=== PATIENT | male | born 1950 | race Caucasian/White ===

== ENCOUNTER 2016-05-22 09:43 | Emergency (ER) | payer MEDICAID, OTHER ==
[~2016-05-22] VITALS: Ht 182.9 cm; Wt 71.8 kg
[~2016-05-22 09:43] MED LIST: CEPH500 PO; RISP1 PO
[2016-05-22 09:44] VITALS: BP 123/84
[2016-05-22] MEDS ORDERED: OXYC10TA89 PO (09:53)
[2016-05-22] MEDS ORDERED: HYDROCODONE/ACETAMINOPHEN 5-325 MG TABLET PO ONE (10:30)
== END 2016-05-22 11:01 | disposition home or self-care (01) ==
LOC: EMS 09:45
DX: M54.5 Low back pain (principal); F20.9 Schizophrenia, unspecified; Z88.6 Allergy status to analgesic agent; W01.0XXA Fall on same level from slipping, tripping and stumbling without subsequent striking against object, initial encounter; Y93.89 Activity, other specified; Y92.89 Other specified places as the place of occurrence of the external cause; Y99.8 Other external cause status
CPT/HCPCS: 99283

== ENCOUNTER 2016-05-24 08:13 | Emergency (ER) | payer OTHER ==
[~2016-05-24] VITALS: Ht 182.9 cm; Wt 71.0 kg
[~2016-05-24 08:13] MED LIST changes: +OXYC10TA89 PO
[2016-05-24] MEDS ORDERED: BACL20TA PO (08:28)
[2016-05-24] MEDS ORDERED: TRAM50TA4 PO (08:28)
[2016-05-24] MEDS ORDERED: GABA-318 PO (08:28)
[2016-05-24 08:38] VITALS: BP 112/72
[2016-05-24] MEDS ORDERED: OxyCODONE HCL/ACETAMINOPHEN 5-325 MG TABLET PO ONE (08:45)
[2016-05-24] MEDS ORDERED: METHOCARBAMOL 500 MG TABLET PO ONE (09:00)
== END 2016-05-24 09:53 | disposition home or self-care (01) ==
LOC: EMS 08:15
DX: M54.5 Low back pain (principal); G89.29 Other chronic pain; I10 Essential (primary) hypertension; Z88.6 Allergy status to analgesic agent
CPT/HCPCS: 99283

== ENCOUNTER 2016-05-25 07:31 | Emergency (ER) | payer OTHER ==
[~2016-05-25] VITALS: Ht 182.9 cm; Wt 70.5 kg
[~2016-05-25 07:31] MED LIST changes: +BACL20TA PO; -CEPH500 PO; +GABA-318 PO; +TRAM50TA4 PO
[2016-05-25 07:36] VITALS: BP 110/81
[2016-05-25] MEDS ORDERED: OxyCODONE HCL/ACETAMINOPHEN 5-325 MG TABLET PO ONE (08:30)
== END 2016-05-25 08:35 | disposition home or self-care (01) ==
LOC: EMS 07:32
DX: G89.29 Other chronic pain (principal); M54.5 Low back pain; I10 Essential (primary) hypertension; Z88.6 Allergy status to analgesic agent
CPT/HCPCS: 99282

== ENCOUNTER 2016-05-27 06:45 | Emergency (ER) | payer OTHER ==
[~2016-05-27] VITALS: Ht 182.9 cm; Wt 72.5 kg
[~2016-05-27 06:45] MED LIST changes: -RISP1 PO
[2016-05-27 07:01] VITALS: BP 139/69
[2016-05-27] MEDS ORDERED: OxyCODONE HCL/ACETAMINOPHEN 5-325 MG TABLET PO ONE (09:00)
[2016-05-27] MEDS ORDERED: METHOCARBAMOL 500 MG TABLET PO ONE (09:00)
== END 2016-05-27 09:11 | disposition home or self-care (01) ==
LOC: EMS 06:47
DX: G89.29 Other chronic pain (principal); M54.9 Dorsalgia, unspecified; I10 Essential (primary) hypertension; Z88.6 Allergy status to analgesic agent
CPT/HCPCS: 99283

== ENCOUNTER 2016-05-27 18:23 | Emergency (ER) | payer OTHER ==
[~2016-05-27] VITALS: Ht 193 cm; Wt 70.5 kg
[2016-05-27] MEDS ORDERED: OxyCODONE HCL/ACETAMINOPHEN 5-325 MG TABLET PO ONE (22:30)
[2016-05-27 22:48] VITALS: BP 115/73
== END 2016-05-27 22:51 | disposition home or self-care (01) ==
LOC: EMS 18:24
DX: M54.5 Low back pain (principal); I10 Essential (primary) hypertension; Z88.6 Allergy status to analgesic agent
CPT/HCPCS: 99282

== ENCOUNTER 2016-05-29 16:03 | Emergency (ER) | payer OTHER ==
[~2016-05-29] VITALS: Ht 185.4 cm; Wt 72.7 kg
[2016-05-29 17:06] VITALS: BP 111/71
== END 2016-05-29 17:11 | disposition home or self-care (01) ==
LOC: EMS 16:05
DX: G89.29 Other chronic pain (principal); M54.5 Low back pain; I10 Essential (primary) hypertension; Z88.6 Allergy status to analgesic agent
CPT/HCPCS: 99281

== ENCOUNTER 2016-05-31 08:45 | Emergency (ER) | payer OTHER ==
[~2016-05-31] VITALS: Ht 185.4 cm; Wt 72.7 kg
[2016-05-31] MEDS ORDERED: OxyCODONE HCL/ACETAMINOPHEN 10-325 MG TABLET PO ONE (10:45)
[2016-05-31 11:56] VITALS: BP 133/64
== END 2016-05-31 11:57 | disposition home or self-care (01) ==
LOC: EMS 08:46
DX: S33.5XXA Sprain of ligaments of lumbar spine, initial encounter (principal); G89.29 Other chronic pain; M54.5 Low back pain; I10 Essential (primary) hypertension; F25.9 Schizoaffective disorder, unspecified; Z88.6 Allergy status to analgesic agent; W19.XXXA Unspecified fall, initial encounter; Y93.89 Activity, other specified; Y92.9 Unspecified place or not applicable; Y99.9 Unspecified external cause status
CPT/HCPCS: 99283

== ENCOUNTER 2016-06-23 06:41 | Emergency (ER) | payer OTHER ==
[~2016-06-23] VITALS: Ht 182.9 cm; Wt 72.7 kg
[2016-06-23] MEDS ORDERED: OxyCODONE HCL/ACETAMINOPHEN 5-325 MG TABLET PO ONE (08:15)
[2016-06-23 08:51] VITALS: BP 125/88
== END 2016-06-23 08:51 | disposition home or self-care (01) ==
LOC: EMS 06:43
DX: G89.29 Other chronic pain (principal); M54.9 Dorsalgia, unspecified; I10 Essential (primary) hypertension; F20.9 Schizophrenia, unspecified; K75.9 Inflammatory liver disease, unspecified; Z88.6 Allergy status to analgesic agent; Z79.899 Other long term (current) drug therapy
CPT/HCPCS: 99283

== ENCOUNTER 2016-06-24 19:06 | Emergency (ER) | payer OTHER | END 2016-06-24 21:53 | disposition left against medical advice (07) | LOC: EMS 19:07 | DX: M54.9 Dorsalgia, unspecified (principal); Z53.21 Procedure and treatment not carried out due to patient leaving prior to being seen by health care provider ==

== ENCOUNTER 2016-06-26 07:17 | Emergency (ER) | payer OTHER ==
[~2016-06-26] VITALS: Ht 182.9 cm; Wt 68.2 kg
[2016-06-26] MEDS ORDERED: ACETAMINOPHEN 1000 MG/ISO-OSM 100 ML IV ONE (07:45)
[2016-06-26] MEDS ORDERED: MORPHINE SULFATE 4 MG/ML SYRINGE IVP ONE (07:45)
[2016-06-26 08:24] VITALS: BP 160/80
== END 2016-06-26 08:33 | disposition home or self-care (01) ==
LOC: EMS 07:19
DX: M54.5 Low back pain (principal); I10 Essential (primary) hypertension; F11.90 Opioid use, unspecified, uncomplicated; Z88.6 Allergy status to analgesic agent
CPT/HCPCS: 96365; 96375; 99284; J0131; J2270

== ENCOUNTER 2016-06-30 08:57 | Emergency (ER) | payer OTHER ==
[~2016-06-30] VITALS: Ht 182.9 cm; Wt 73.5 kg
[~2016-06-30 08:57] MED LIST changes: -TRAM50TA4 PO
[2016-06-30 09:05] VITALS: BP 100/63
[2016-06-30] MEDS ORDERED: PERCT10 PO (09:11)
== END 2016-06-30 12:20 | disposition home or self-care (01) ==
LOC: EMS 08:59
DX: M54.5 Low back pain (principal); G89.29 Other chronic pain; I10 Essential (primary) hypertension; Z76.0 Encounter for issue of repeat prescription; Z88.6 Allergy status to analgesic agent; Z88.8 Allergy status to other drugs, medicaments and biological substances
CPT/HCPCS: 99283

== ENCOUNTER 2016-08-29 19:15 | Emergency (ER) | payer OTHER ==
[~2016-08-29] VITALS: Ht 185.4 cm; Wt 78.0 kg
[~2016-08-29 19:15] MED LIST changes: -OXYC10TA89 PO; +PERCT10 PO
[2016-08-29] MEDS ORDERED: BACLOFEN 10 MG TABLET PO ONE (20:15)
[2016-08-29] MEDS ORDERED: OxyCODONE HCL/ACETAMINOPHEN 10-325 MG TABLET PO ONE (20:15)
[2016-08-29 20:45] VITALS: BP 111/79
== END 2016-08-29 20:50 | disposition home or self-care (01) ==
LOC: EMS 19:18
DX: S80.02XA Contusion of left knee, initial encounter (principal); S80.01XA Contusion of right knee, initial encounter; I10 Essential (primary) hypertension; Z88.6 Allergy status to analgesic agent; W18.09XA Striking against other object with subsequent fall, initial encounter; Y93.89 Activity, other specified; Y92.89 Other specified places as the place of occurrence of the external cause; Y99.8 Other external cause status
CPT/HCPCS: 99283

== ENCOUNTER 2016-08-30 18:21 | Emergency (ER) | payer OTHER ==
[~2016-08-30] VITALS: Ht 185.4 cm; Wt 75.0 kg
[2016-08-30 18:24] VITALS: BP 112/74
[2016-08-30] MEDS ORDERED: OxyCODONE HCL/ACETAMINOPHEN 5-325 MG TABLET PO ONE (20:30)
== END 2016-08-30 20:43 | disposition home or self-care (01) ==
LOC: EMS 18:23
DX: M54.5 Low back pain (principal); G89.29 Other chronic pain; I10 Essential (primary) hypertension; Z88.6 Allergy status to analgesic agent
CPT/HCPCS: 99283

== ENCOUNTER 2016-10-22 10:42 | Emergency (ER) | payer OTHER ==
[~2016-10-22] VITALS: Ht 182.9 cm; Wt 75.0 kg
[~2016-10-22 10:42] MED LIST changes: -BACL20TA PO; -PERCT10 PO
[2016-10-22] MEDS ORDERED: OXYC-341 PO (10:56)
[2016-10-22] MEDS ORDERED: RISP1 PO (10:56)
[2016-10-22] MEDS ORDERED: BACL10TA PO (10:56)
[2016-10-22] MEDS ORDERED: ACET650T7 PO (10:56)
[2016-10-22] MEDS ORDERED: OxyCODONE HCL/ACETAMINOPHEN 5-325 MG TABLET PO ONE (12:15)
[2016-10-22 12:53] VITALS: BP 101/66
== END 2016-10-22 13:00 | disposition home or self-care (01) ==
LOC: EMS 10:43
DX: M43.6 Torticollis (principal); M54.9 Dorsalgia, unspecified; G89.29 Other chronic pain; I10 Essential (primary) hypertension; Z88.6 Allergy status to analgesic agent
CPT/HCPCS: 99283

== ENCOUNTER 2017-04-30 04:46 | Emergency (ER) | payer MEDICARE, OTHER ==
[~2017-04-30] VITALS: Ht 182.9 cm; Wt 80.0 kg
[~2017-04-30 04:46] MED LIST changes: +ACET-2521 PO; +BACL10TA PO; +OXYC-530 PO; +RISP1 PO
[2017-04-30] MEDS ORDERED: MORPHINE SULFATE 4 MG/ML SYRINGE IM ONE (06:30)
[2017-04-30 06:42] VITALS: BP 112/65
== END 2017-04-30 06:45 | disposition home or self-care (01) ==
LOC: EMS 04:47
DX: M54.5 Low back pain (principal); F20.9 Schizophrenia, unspecified; I10 Essential (primary) hypertension; Z88.6 Allergy status to analgesic agent; W19.XXXA Unspecified fall, initial encounter; Y93.89 Activity, other specified; Y92.091 Bathroom in other non-institutional residence as the place of occurrence of the external cause; Y99.8 Other external cause status
CPT/HCPCS: 96372; 99283; J2270

== ENCOUNTER 2017-05-06 11:34 | Emergency (ER) | payer MEDICARE, OTHER ==
[~2017-05-06] VITALS: Ht 182.9 cm; Wt 86.4 kg
[2017-05-06] MEDS ORDERED: OxyCODONE HCL/ACETAMINOPHEN 5-325 MG TABLET PO ONE (15:00)
[2017-05-06 15:42] VITALS: BP 118/72
== END 2017-05-06 15:45 | disposition home or self-care (01) ==
LOC: EMS 11:34
DX: S90.812A Abrasion, left foot, initial encounter (principal); S60.512A Abrasion of left hand, initial encounter; S60.511A Abrasion of right hand, initial encounter; I10 Essential (primary) hypertension; F17.210 Nicotine dependence, cigarettes, uncomplicated; Z88.5 Allergy status to narcotic agent; Z88.6 Allergy status to analgesic agent; Z76.0 Encounter for issue of repeat prescription; W18.30XA Fall on same level, unspecified, initial encounter; Y93.89 Activity, other specified; Y92.091 Bathroom in other non-institutional residence as the place of occurrence of the external cause; Y99.8 Other external cause status
CPT/HCPCS: 99283

== ENCOUNTER 2017-05-10 09:56 | Emergency (ER) | payer MEDICARE, OTHER ==
[~2017-05-10] VITALS: Ht 182.9 cm; Wt 86.4 kg
[2017-05-10 10:58] VITALS: BP 165/83
[2017-05-10] MEDS ORDERED: TraMADol HCL 50 MG TABLET PO ONE (11:15)
== END 2017-05-10 12:24 | disposition home or self-care (01) ==
LOC: EMS 09:58
DX: S90.122A Contusion of left lesser toe(s) without damage to nail, initial encounter (principal); L03.032 Cellulitis of left toe; M20.42 Other hammer toe(s) (acquired), left foot; M54.5 Low back pain; G89.29 Other chronic pain; I10 Essential (primary) hypertension; F17.210 Nicotine dependence, cigarettes, uncomplicated; Z88.6 Allergy status to analgesic agent; Z88.8 Allergy status to other drugs, medicaments and biological substances; X50.1XXA Overexertion from prolonged static or awkward postures, initial encounter; Y93.89 Activity, other specified; Y92.89 Other specified places as the place of occurrence of the external cause; Y99.8 Other external cause status
CPT/HCPCS: 99284

== ENCOUNTER 2018-09-01 06:45 | Emergency (ER) | payer MEDICARE, OTHER ==
[~2018-09-01] VITALS: Ht 182.9 cm; Wt 94.1 kg
[2018-09-01] MEDS ORDERED: TraMADol HCL 50 MG TABLET PO ONE (09:30)
[2018-09-01 09:41] VITALS: BP 122/80
== END 2018-09-01 09:39 | disposition home or self-care (01) ==
LOC: EMS 06:47
DX: G89.29 Other chronic pain (principal); M54.5 Low back pain; I10 Essential (primary) hypertension; F20.9 Schizophrenia, unspecified; F17.210 Nicotine dependence, cigarettes, uncomplicated; F19.10 Other psychoactive substance abuse, uncomplicated; Z88.6 Allergy status to analgesic agent; Z88.8 Allergy status to other drugs, medicaments and biological substances; W01.0XXA Fall on same level from slipping, tripping and stumbling without subsequent striking against object, initial encounter; Y93.89 Activity, other specified; Y92.481 Parking lot as the place of occurrence of the external cause; Y99.8 Other external cause status
CPT/HCPCS: 99406

== ENCOUNTER 2020-09-12 15:04 | Emergency (ER) | payer MEDICARE, MEDICAID ==
[~2020-09-12] VITALS: Ht 185.4 cm; Wt 72.7 kg
[2020-09-12] MEDS ORDERED: METHADONE HCL 10 MG TABLET PO ONE (15:45)
[2020-09-12] MEDS ORDERED: METH10 PO (16:10)
[2020-09-12 17:02] LABS: BASOPHILS % (AUTO) 0.5 % (0.0-2.0); EOSINOPHILS % (AUTO) 0.4 % (1.0-6.0); HEMOGLOBIN 18.1 g/dL (13.5-17.5); LYMPHOCYTES # (AUTO) 1.7 K/uL (1.0-4.8); LYMPHOCYTES % (AUTO) 23.5 % (22.0-44.0); MEAN CORPUSCULAR HEMOGLOBIN 31.3 pg (26.0-34.0); MEAN CORPUSCULAR HGB CONC 33.6 G/dL (31.0-37.0); MEAN CORPUSCULAR VOLUME 93 fL (80-100); MONOCYTES # (AUTO) 0.8 K/uL (0.1-1.0); MONOCYTES % (AUTO) 10.8 % (2.0-9.0); NEUTROPHILS # (AUTO) 4.6 K/uL (1.8-7.7); NEUTROPHILS % (AUTO) 64.8 % (40.0-70.0); PLATELET COUNT (AUTO) 332 K/uL (150-450)
[2020-09-12 17:05] LABS: APPEARANCE,URINE CLEAR (CLEAR); BILIRUBIN,URINE NEGATIVE (NEGATIVE); GLUCOSE, URINE (UA) NEGATIVE (NEGATIVE); KETONES,URINE TRACE mg/dL (NEGATIVE); LEUKOCYTE ESTERASE ,URINE NEGATIVE (NEGATIVE); NITRATE,URINE NEGATIVE (NEGATIVE); OCCULT BLOOD,URINE NEGATIVE (NEGATIVE); PROTEIN,URINE TRACE (NEGATIVE); UROBILINOGEN,URINE 0.2 mg/dL (<=1.0)
[2020-09-12 17:10] LABS: AMPHET/METH SCREEN,URINE NEGATIVE (NEGATIVE); BARBITURATE SCREEN, URINE NEGATIVE (NEGATIVE); BENZODIAZEPINES SCREEN,URINE NEGATIVE (NEGATIVE); CANNABINOID SCREEN,URINE POSITIVE (NEGATIVE); COCAINE SCREEN,URINE NEGATIVE (NEGATIVE); METHADONE SCREEN, URINE POSITIVE (NEGATIVE); OPIATE SCREEN,URINE NEGATIVE (NEGATIVE)
[2020-09-12 17:10] LABS: ANION GAP 13 mmol/L (8-16); CALCIUM, TOTAL 9.8 mg/dL (8.8-10.5); CARBON DIOXIDE 26 mmol/L (22-29); CHLORIDE 96 mmol/L (98-107); CREATININE 0.82 mg/dL (0.60-1.30); GLOMERULAR FILTR. RATE CALC > 60 mL/min (>60); GLUCOSE,RANDOM 116 mg/dL (70-110); SODIUM SERUM 135 mmol/L (136-145); UREA NITROGEN, BLOOD 13 mg/dL (7-18)
[2020-09-12 17:16] LABS: PHENCYCLIDINE SCREEN,URINE NEGATIVE (NEGATIVE)
[2020-09-12 17:16] LABS: ALANINE AMINOTRANSFERASE 125 U/L (12-78); ALBUMIN 4.2 g/dL (3.4-5.0); ALKALINE PHOSPHATASE 90 U/L (46-116); ASPARTATE AMINOTRANSFERASE 97 U/L (15-37); BILIRUBIN,TOTAL 0.6 mg/dL (0.1-1.0); CREATINE KINASE, TOTAL ONLY 53 U/L (39-308); TOTAL PROTEIN, SERUM 8.5 g/dL (6.4-8.2)
[2020-09-12 17:31] LABS: B-TYPE NATRIURETIC PEPTIDE 27 pg/mL (0-100)
[2020-09-12 17:43] VITALS: BP 135/80
== END 2020-09-12 18:02 | disposition home or self-care (01) ==
LOC: EMS 15:04
DX: R06.02 Shortness of breath (principal); F19.10 Other psychoactive substance abuse, uncomplicated; J44.9 Chronic obstructive pulmonary disease, unspecified; I10 Essential (primary) hypertension; F20.9 Schizophrenia, unspecified; F17.210 Nicotine dependence, cigarettes, uncomplicated; Z88.6 Allergy status to analgesic agent
CPT/HCPCS: 36415; 71045; 80053; 80307; 81003; 82550; 83880; 84484; 85025; 93005; 99285; G0480

== ENCOUNTER 2020-10-11 07:11 | Emergency (ER) | payer MEDICAID, MEDICARE ==
[~2020-10-11] VITALS: Ht 182.9 cm; Wt 72.7 kg
[2020-10-11 08:23] LABS: ANION GAP 5 mmol/L (8-16); CALCIUM, TOTAL 8.9 mg/dL (8.8-10.5); CARBON DIOXIDE 29 mmol/L (22-29); CHLORIDE 97 mmol/L (98-107); CREATININE 0.63 mg/dL (0.60-1.30); GLOMERULAR FILTR. RATE CALC > 60 mL/min (>60); GLUCOSE,RANDOM 100 mg/dL (70-110); POTASSIUM 4.4 mmol/L (3.5-5.1); SODIUM SERUM 131 mmol/L (136-145); UREA NITROGEN, BLOOD 10 mg/dL (7-18)
[2020-10-11 08:24] LABS: HEMOGLOBIN 11.9 g/dL (13.5-17.5); MEAN CORPUSCULAR HEMOGLOBIN 31.1 pg (26.0-34.0); MEAN CORPUSCULAR VOLUME 92 fL (80-100); PLATELET COUNT (AUTO) 247 K/uL (150-450); RED BLOOD CELL COUNT(AUTO) 3.82 MIL/uL (4.50-5.90); RED CELL DISTRIBUTION WIDTH 14.2 % (11.5-14.5)
[2020-10-11 08:26] LABS: BAND NEUTROPHILS % (MANUAL) 0 % (0-5)
[2020-10-11 08:28] LABS: ALANINE AMINOTRANSFERASE 84 U/L (12-78); ALBUMIN 2.8 g/dL (3.4-5.0); ALKALINE PHOSPHATASE 75 U/L (46-116); ASPARTATE AMINOTRANSFERASE 60 U/L (15-37); BILIRUBIN,TOTAL 0.3 mg/dL (0.1-1.0); LIPASE 75 U/L (73-393); TOTAL PROTEIN, SERUM 6.8 g/dL (6.4-8.2)
[2020-10-11 08:40] LABS: B-TYPE NATRIURETIC PEPTIDE 114 pg/mL (0-100)
[2020-10-11 08:44] LABS: EOSINOPHILS % (MANUAL) 1 % (1-6); LYMPHOCYTES % (MANUAL) 53 % (22-44); MONOCYTES % (MANUAL) 4 % (2-9); SEGMENTED NEUTROPHILS % 42 % (40-70)
[2020-10-11] MEDS ORDERED: SODIUM CHLORIDE 0.9% 1,000 ML IV ONE (08:45)
[2020-10-11] MEDS ORDERED: THIAMINE 100 MG TABLET PO ONE (08:45)
[2020-10-11] MEDS ORDERED: ChlordiazePOXIDE HCL 25 MG CAPSULE PO ONE (08:45)
[2020-10-11 10:40] VITALS: BP 121/74
== END 2020-10-11 10:40 | disposition home or self-care (01) ==
LOC: EMS 07:12
DX: F10.20 Alcohol dependence, uncomplicated (principal); R53.1 Weakness; J44.9 Chronic obstructive pulmonary disease, unspecified; I10 Essential (primary) hypertension; F20.9 Schizophrenia, unspecified; F17.210 Nicotine dependence, cigarettes, uncomplicated; Z88.5 Allergy status to narcotic agent; Z88.6 Allergy status to analgesic agent; Y90.0 Blood alcohol level of less than 20 mg/100 ml
CPT/HCPCS: 80053; 83690; 83880; 84484; 85025; 93005; 96360; 99284; G0480